=== PATIENT | male | born 1980 | race Caucasian/White ===

== ENCOUNTER 2017-12-28 20:41 | Emergency (ER) | payer OTHER ==
[~2017-12-28] VITALS: Ht 182.9 cm; Wt 73.5 kg
[2017-12-28] MEDS ORDERED: NORCO 5-325 TA1 EAC1 PO (21:24)
[2017-12-28] MEDS ORDERED: PENICILLIN VK500 MG PO (21:24)
[2017-12-28 22:03] VITALS: BP 145/69
== END 2017-12-28 22:07 | disposition home or self-care (01) ==
LOC: M.ERS 20:41
DX: K02.9 Dental caries, unspecified (principal); K04.7 Periapical abscess without sinus; F17.210 Nicotine dependence, cigarettes, uncomplicated

== ENCOUNTER 2019-11-08 09:01 | Emergency (ER) | payer OTHER ==
[~2019-11-08] VITALS: Ht 182.9 cm; Wt 77.1 kg
[~2019-11-08 09:01] MED LIST: NORCO 5-325 TA1 EAC1 PO; PENICILLIN VK500 MG PO
[2019-11-08 09:31] VITALS: BP 148/94
[2019-11-08] MEDS ORDERED: ZOFRAN ODT4 MG DISSOLVE (09:31)
== END 2019-11-08 09:31 | disposition home or self-care (01) ==
LOC: M.ERS 09:01
DX: R19.7 Diarrhea, unspecified (principal)